=== PATIENT | female | born 1995 | race Hispanic/Latino ===

== ENCOUNTER 2018-08-03 13:32 | Day surgery (SDC) | payer OTHER ==
[2018-08-03 14:01] VITALS: BMI 23.9
[2018-08-03 14:09] VITALS: BP 118/56; TEMP 98.1
[2018-08-03] MEDS ORDERED: Acetaminophen 500 MG TAB PO PRN (14:37)
[2018-08-03] MEDS ORDERED: Iron Sucrose Complex 500 MG in Sodium Chloride 0.9% 250 ML 250 ML IVPB SCH (14:37)
[2018-08-03] MEDS ORDERED: Sodium Chloride 0.9% 1,000 ML IV SCH (14:45)
--- NOTE | 2018-08-03 20:39 | PDOC.LDHP ---
Labor and Delivery H&P HPI: 23 y/o at 37 and 1/7 weeks, presents with severe anemia of 2 weeks prior to . Clinic Hb/Hct was 7.9 and 24. We will administer iron by IV route per protocol today, and plan to repeat in 48 hours. Current gestational age (weeks): 37 Due date: 08/23/18 Grav: 3 Para: 1 Current complications: other (Severe Anemia) Current medications: pre-marya vitamins, iron Previous surgical history: low tranverse CS Allergies/Adverse Reactions: Allergies Allergy/AdvReac Type Severity Reaction Status Date / Time No Known Allergies Allergy Unverified 08/03/18 14:09 Social history: none - Physical Exam Vital signs reviewed and normal: yes General: NAD, resting Heart: RRR Lungs: nonlabored breathing Abdomen: NTTP Extremeties: no edema FHT: category 1 - Assessment Observastion on L&D with IV Iron infusion per protocol.
== END 2018-08-03 20:35 | disposition home or self-care (01) ==
LOC: L&D/OP 13:32
PROVIDERS: ATTEND Obstetrics & Gynecology
DX: O99.013 Anemia complicating pregnancy, third trimester (principal); D64.9 Anemia, unspecified; Z3A.37 37 weeks gestation of pregnancy; Z79.899 Other long term (current) drug therapy
CPT/HCPCS: 96361; 96365; 96366; 99281; J1756; J7050

== ENCOUNTER 2018-08-05 08:02 | Day surgery (SDC) | payer OTHER ==
[2018-08-05 08:24] VITALS: BMI 23.9
[2018-08-05] MEDS ORDERED: Iron Sucrose Complex 500 MG in Sodium Chloride 0.9% 250 ML 250 ML IVPB SCH (08:30)
[2018-08-05] MEDS ORDERED: Acetaminophen 500 MG TAB PO SCH (08:30)
--- NOTE | 2018-08-05 13:23 | PDOC.LDHP ---
Labor and Delivery H&P HPI: 23 y/o at 37 and 3/7 weeks, presents for second round of IV Iron - with severe anemia of 2 weeks prior to . Clinic Hb/Hct was 7.9 and 24. We will administer iron by IV route per protocol today, planned in 2 weeks. Current gestational age (weeks): 37 Grav: 3 Para: 1 Current complications: other (Severe Anemia, Chronic UTI) Current medications: pre- vitamins, iron Previous surgical history: low tranverse CS Allergies/Adverse Reactions: Allergies Allergy/AdvReac Type Severity Reaction Status Date / Time No Known Allergies Allergy Verified 08/05/18 08:23 Social history: none - Physical Exam Vital signs reviewed and normal: yes General: NAD, resting Heart: RRR Lungs: CTAB Abdomen: NTTP Extremeties: no edema FHT: category 1 - Vaginal Exam Effacement: 0% - Plan Plan: other -: Same Day Observation, with IV Iron Infusion. F/U in clinic in 4 days. NST today is reactive and reassuring.
== END 2018-08-05 13:12 | disposition home health service (06) ==
LOC: L&D/OP 08:02
PROVIDERS: ATTEND Obstetrics & Gynecology
DX: O99.013 Anemia complicating pregnancy, third trimester (principal); D64.9 Anemia, unspecified; N39.0 Urinary tract infection, site not specified; Z3A.37 37 weeks gestation of pregnancy; Z79.899 Other long term (current) drug therapy
CPT/HCPCS: 96365; 96366; 99282; J1756; J7050

== ENCOUNTER 2018-08-17 09:28 | Inpatient (IN) | payer OTHER ==
[2018-08-17 10:24] VITALS: BMI 24.3
[2018-08-17] MEDS ORDERED: Promethazine HCl 25 MG/ML VIAL IM PRN ×3 (10:26→18:08)
[2018-08-17] MEDS ORDERED: Ondansetron PF 4 MG/2 ML Vial IVP PRN ×3 (10:26→18:08)
[2018-08-17] MEDS ORDERED: Bicitra 30 ML UDCUP PO SCH (10:30)
[2018-08-17] MEDS ORDERED: CEFAZOLIN 2 GM in Premix Bag 1 BAG IVPB SCH (10:30)
[2018-08-17] MEDS ORDERED: Lactated Ringer's 1,000 ML IV SCH (10:30)
--- NOTE | 2018-08-17 10:33 | PDOC.LDHP ---
Labor and Delivery H&P HPI: 23 y/o at 39 weeks for repeat . Current gestational age (weeks): 39 Grav: 3 Para: 1 Current complications: other (Anemia, Chronic UTI) Abnormal US findings: No Current medications: pre- vitamins Previous surgical history: low tranverse CS Allergies/Adverse Reactions: Allergies Allergy/AdvReac Type Severity Reaction Status Date / Time No Known Allergies Allergy Verified 08/05/18 08:23 Social history: none - Physical Exam Vital signs reviewed and normal: yes General: NAD, resting Heart: RRR Lungs: CTAB Abdomen: NTTP Extremeties: no edema FHT: category 1 - Assessment L&D Assessment: scheduled repeat section - Plan Plan: admit to L&D, to OR for section
[2018-08-17 10:56] LABS: Hemoglobin 10.1 g/dL (12.0-16.0); Mean Corpuscular HGB CONC 33.4 g/dL (32.0-36.0); Mean Corpuscular Hemoglobin 26.4 pg (27.0-31.0); Mean Corpuscular Volume 78.9 fL (78.0-98.0); Mean Platelet Volume 11.6 fL (7.4-10.4); Platelet Count 194 thou/uL (130-400); RBC Distribution Width 27.4 % (11.5-14.5); Red Blood Cell (RBC) Count 3.84 mill/uL (4.20-5.40); White Blood Cell (WBC) Count 7.1 thou/uL (4.8-10.8)
[2018-08-17 11:35] LABS: Syphilis Antibody Nonreactive (Nonreactive)
[2018-08-17 11:36] LABS: HBSAg Index 0.32 S/CO (0-0.99); Hep B Surf Ag Non-Reactive S/CO (NonReactive)
[2018-08-17] MEDS: Lactated Ringer's 1,000 ML IV SCH ×2 (11:59→19:26)
[2018-08-17] MEDS ORDERED: Oxytocin 10 UNITS/ML VIAL ONE ×2 (13:40→13:48)
[2018-08-17] MEDS ORDERED: Carboprost 250 MCG/ML AMP ONE (13:44)
[2018-08-17] MEDS ORDERED: Misoprostol 200 MCG TAB ONE (13:44)
[2018-08-17] MEDS ORDERED: Methylergonovine 0.2 MG TAB ONE (13:45)
[2018-08-17] MEDS ORDERED: Methylergonovine 0.2 MG/ML VIAL ONE (13:45)
[2018-08-17] MEDS ORDERED: MORPHINE 5 MG/10 ML PF VIAL ONE (13:49)
[2018-08-17] MEDS ORDERED: Naloxone HCl 0.4 mg/ml Vial IVP PRN ×2 (15:12)
[2018-08-17] MEDS ORDERED: Ondansetron HCl/PF 4 MG/2 ML Vial IVP PRN (15:12)
[2018-08-17] MEDS ORDERED: HYDROmorphone 2 MG/ML VIAL SLOW IVP PRN (15:12)
[2018-08-17] MEDS ORDERED: diphenhydrAMINE 50 MG/ML VIAL IVP PRN (15:12)
[2018-08-17] MEDS ORDERED: L&D-Morphine 4 MG/ML VIAL SLOW IVP PRN (15:12)
[2018-08-17] MEDS ORDERED: Promethazine HCl 25 MG SUPP PR PRN (15:12)
[2018-08-17] MEDS ORDERED: Meperidine HCl/PF 25 MG/ML VIAL SLOW IVP PRN (15:12)
[2018-08-17] MEDS ORDERED: Naloxone HCl 0.4 mg/ml Vial IV PRN (15:12)
[2018-08-17] MEDS ORDERED: Ketorolac Tromethamine 30 MG/ML VIAL IVP PRN (15:12)
[2018-08-17] MEDS ORDERED: Ketorolac Tromethamine 30 MG/ML VIAL IVP SCH (15:15)
[2018-08-17] MEDS ORDERED: Communication Order-Pharmacy FS SCH (15:15)
[2018-08-17] MEDS ORDERED: NS / Oxytocin 40 units/1000ml 1,000 ML IV SCH (18:08)
[2018-08-17] MEDS ORDERED: HYDROcodone/Acetaminophen 5/325 mg Tablet PO PRN (18:08)
[2018-08-17] MEDS ORDERED: Bisacodyl 10 MG SUPP PR PRN (18:08)
[2018-08-17] MEDS ORDERED: Simethicone Chewable 80 MG TAB PO PRN (18:08)
[2018-08-17] MEDS ORDERED: Lanolin Ointment 7 GM TUBE TOP PRN (18:08)
[2018-08-17] MEDS ORDERED: Misoprostol 200 MCG TAB PR PRN (18:08)
[2018-08-17] MEDS ORDERED: Zolpidem Tartrate 5 MG TAB PO PRN (18:08)
[2018-08-17] MEDS ORDERED: diphenhydrAMINE 25 MG CAP PO PRN (18:08)
[2018-08-18 06:38] LABS: Hemoglobin 6.9 g/dL (12.0-16.0); Mean Corpuscular HGB CONC 31.3 g/dL (32.0-36.0); Mean Corpuscular Hemoglobin 25.9 pg (27.0-31.0); Mean Corpuscular Volume 82.7 fL (78.0-98.0); Mean Platelet Volume 11.2 fL (7.4-10.4); Platelet Count 138 thou/uL (130-400); RBC Distribution Width 27.7 % (11.5-14.5); Red Blood Cell (RBC) Count 2.65 mill/uL (4.20-5.40); White Blood Cell (WBC) Count 5.5 thou/uL (4.8-10.8)
[2018-08-18] MEDS: Ibuprofen 800 MG TAB PO SCH ×4 (07:45→21:26)
[2018-08-18] MEDS: Docusate Calcium (SURFAK) 240 MG CAP PO SCH ×3 (07:45→21:26)
[2018-08-18] MEDS: Prenatal Vitamin 1 TAB PO SCH (08:08)
[2018-08-18] MEDS: Ferrous Sulfate 325 MG TAB PO SCH ×2 (08:08→21:26)
[2018-08-18] MEDS ORDERED: Varicella virus, LIVE 0.5 ML VIAL SC ONE (09:00)
[2018-08-18] MEDS ORDERED: Measles/Mumps/Rubella 10 MCG/0.5 ML VIAL SC ONE (09:00)
[2018-08-18] MEDS ORDERED: Adacel (T-DAP) 0.5 ML SYRINGE IM ONE (09:00)
[2018-08-18] MEDS: HYDROcodone/Acetaminophen 5/325 mg Tablet PO PRN ×2 (10:12→14:57)
--- NOTE | 2018-08-18 16:03 | PDOC.PP ---
Post Progress Note Post Day #: 1 PO intake tolerated: yes Flatus: yes Ambulation: yes Vital Signs (12 hours) Temp Pulse Resp BP Pulse Ox 08/18/18 12:21 98.3 F 88 18 102/64 08/18/18 07:51 98.2 F 79 18 104/61 99 08/18/18 05:10 98.4 F 66 18 99/50 L Weight Weight 137 lb - Physical Examination General: NAD Cardiovascular: no m/r/g, RRR Respiratory: clear to auscultation bilaterally, non-labored breathing Abdominal: + bowel sounds, lochia, no distention, appropriately TTP Extremities: negative homans (B) Skin: CS incision dry & intact, no rash Neurological: no gross focal deficits Psychiatric: A&Ox3, normal affect (Post op Anemia is noted today. Will recheck CBC in am as some of this is likely dilutional. Possible DC home tomorrow.) Result Diagrams: 08/18/18 06:14 Additional Labs: Post Labs Blood Type A POSITIVE 08/17/18 11:00 Hep Bs Antigen Non-Reactive S/CO (NonReactive) 08/17/18 10:36
--- NOTE | 2018-08-18 21:51 | OP ---
DATE OF PROCEDURE: 08/17/2018 TIME: 1443 hours central daylight savings time. PREOPERATIVE DIAGNOSIS: Intrauterine at 39 weeks and 1 day with history of previous section for cephalopelvic disproportion, who desires repeat section. POSTOPERATIVE DIAGNOSIS: Intrauterine at 39 weeks and 1 day with history of previous section for cephalopelvic disproportion, who desires repeat section. PROCEDURE PERFORMED: Repeat low transverse section. FINDINGS: Viable male weighing 3611 g or 7 pounds 15 ounces. Apgars of 8 and 9. QUANTITATIVE BLOOD LOSS: 483 mL. COMPLICATIONS: None. DETAILS OF THE PROCEDURE: The patient was consented and taken back to the operating room where spinal anesthesia was found to be adequate. She was then prepped and draped in the normal sterile fashion. A timeout was performed by the entire operative team. The incision was then marked with a marking pen tested using sharp pickups. An incision was then made with a scalpel. The incision was carried through the adipose tissue down to the underlying rectus fascia using both sharp dissection as well as cautery. Once the fascia was identified, it was incised in the midline and then the fascial incision was carried through in both lateral directions using sharp as well as cautery dissection techniques. Next, the superior aspect of the rectus fascia was grasped with 2 Tyron clamps, which was tented up and the rectus muscles were dissected off using blunt dissection as well as cautery dissection. Similarly, the inferior aspect of the fascial incision was grasped with 2 Tyron clamps, tented up and the rectus muscles were dissected off bluntly as well as sharply. Next, the rectus muscles were in the midline and the peritoneum identified. The peritoneum was then carefully grasped with 2 hemostats and entered sharply. The peritoneal incision was extended superiorly and inferiorly and bladder blade was placed in the lower abdomen. At this point, the uterus was identified and the bladder flap was then developed using pickups with teeth as well as Metzenbaum scissors in both lateral directions. The bladder flap was then dissected downwards using the track grinder operator's finger as well as Metzenbaum scissors. The bladder blade was replaced. The lower uterine segment was then identified and entered sharply using a clean scalpel. The uterine incision was then dissected downwards until thin layer of muscle remained and this was entered bluntly using a hemostat to avoid any injury to the baby. The uterine incision was then stretched using two fingers in both lateral directions. An amniotomy was performed artificially using a hemostat and the baby was delivered using fundal pressure in a gentle fashion. Once out, the baby's mouth and nose were bulb suctioned, cord clamped and cut, and the baby was handed to waiting attendants. Next, the uterus was exteriorized, cleared of all clots and debris and the uterine incision was repaired with #1 Monocryl in a running locking fashion. A 2nd suture of the same type was used to obtain complete hemostasis at the uterine incision. The bladder flap was reapproximated using 3-0 Monocryl. Next, patient's left and right adnexa were inspected and appeared to be within normal limits. The posterior cul-de-sac was blotted dry and hemostasis assured. One more look at the uterine incision demonstrated hemostasis. Next, the uterus was replaced back within the abdomen. The peritoneum was reapproximated using 2-0 Monocryl without difficulty. The rectus muscles were then allowed to come back together and 0 chromic was used to aid in reapproximation of the muscle as necessary. The rectus fascia was then reapproximated in a running fashion using 0 Vicryl suture. The adipose tissue was then examined and appeared to be well approximated without any obvious separations. Finally, the skin was reapproximated with 3-0 Monocryl on a Memo needle without difficulty and Dermabond adhesive was applied to the skin. Once the glue was dry, the drapes were removed and the patient was transferred to an ambulatory bed where she was taken to recovery awake and in stable condition. Sponge, lap, and needle counts were correct x3. Addendum: After closure of the uterus, it was found to still be somewhat atonic and the patient received a single dose of Methergine, which after several minutes, significantly improved the tone of the uterus to a normal level. A slight extension of the uterine incision to the left side was repaired with an additional figure-of-8 suture. No further difficulties were encountered. Job ID: [id number]
[2018-08-19] MEDS: Ibuprofen 800 MG TAB PO SCH (05:21)
[2018-08-19 06:43] LABS: #Lymphocytes 1.4 thou/uL (1.20-3.40); #Monocytes 0.6 thou/uL (0.11-0.59); #Neutrophils 5.3 thou/uL (1.40-6.50); %Basophils 0.4 % (0.0-1.0); %Eosinophils 0.5 % (0.0-10.0); %Lymphocytes 19.6 % (21.0-51.0); %Monocytes 8.1 % (0.0-10.0); %Neutrophils 71.4 % (42.0-75.0); Anisocytosis SLIGHT = 6-15 cells (100X) (0-5/hpf); Hemoglobin 6.7 g/dL (12.0-16.0); Hypochromia SLIGHT = 6-15 cells (100X) (0-5/hpf); MDiff Complete? YES; Mean Corpuscular HGB CONC 31.3 g/dL (32.0-36.0); Mean Corpuscular Hemoglobin 26.2 pg (27.0-31.0); Mean Corpuscular Volume 83.8 fL (78.0-98.0); Mean Platelet Volume 11.1 fL (7.4-10.4); Platelet Count 167 thou/uL (130-400); Platelet Morphology Comment Appears Adequate; RBC Distribution Width 27.6 % (11.5-14.5); Red Blood Cell (RBC) Count 2.55 mill/uL (4.20-5.40); White Blood Cell (WBC) Count 7.4 thou/uL (4.8-10.8)
[2018-08-19] MEDS: Ferrous Sulfate 325 MG TAB PO SCH (10:03)
[2018-08-19] MEDS: Docusate Calcium (SURFAK) 240 MG CAP PO SCH (10:03)
[2018-08-19] MEDS: Prenatal Vitamin 1 TAB PO SCH (10:03)
--- NOTE | 2018-08-19 11:20 | PDOC.PP ---
Post Progress Note Post Day #: 2 PO intake tolerated: yes Flatus: yes Ambulation: yes Vital Signs (12 hours) Temp Pulse Resp BP 08/19/18 05:30 97.9 F 71 16 109/56 L 08/18/18 23:35 98.8 F 63 16 99/52 L Weight Weight 137 lb - Physical Examination General: NAD Cardiovascular: no m/r/g, RRR Respiratory: clear to auscultation bilaterally, non-labored breathing Abdominal: + bowel sounds, no distention Extremities: negative homans (B) Skin: CS incision dry & intact, no rash Neurological: no gross focal deficits Psychiatric: A&Ox3, normal affect Result Diagrams: 08/19/18 05:02 Additional Labs: Post Labs Blood Type A POSITIVE 08/17/18 11:00 Hep Bs Antigen Non-Reactive S/CO (NonReactive) 08/17/18 10:36 - Assessment/Plan Patient has normal orthostatic vital signs. IV Discontinued. Vital signs stable since surgery. No headaches or SOB. Blood Transfusion of 1-2 pRBCs offered and discussed with patient and this morning. Possible consequences of not receiving blood also reviewed in detail. Patient declines blood transfusion. She desires to only continue iron at home. Bleeding precautions and signs/ symptoms of worsening anemia discussed and reviewed prior to discharge.
[2018-08-19 11:24] VITALS: TEMP 98.7
[2018-08-19 11:34] VITALS: BP 108/66
== END 2018-08-19 12:45 | disposition home or self-care (01) | DRG 788 ==
LOC: L&D 09:28 → 3SW 17:56
PROVIDERS: ADMIT Obstetrics & Gynecology; ATTEND Obstetrics & Gynecology
PROC: 10D00Z1 Extraction of Products of Conception, Low, Open Approach (ICD-10-PCS; principal; 2018-08-17)
DX: O34.211 Maternal care for low transverse scar from previous cesarean delivery (principal); O99.02 Anemia complicating childbirth; D64.9 Anemia, unspecified; O33.9 Maternal care for disproportion, unspecified; Z3A.39 39 weeks gestation of pregnancy; Z37.0 Single live birth
CPT/HCPCS: 36415; 51702; 85025; 85027; 86780; 86850; 86900; 86901; 87340; J0690; J1885; J2210; J2270; J2590; J3490; Q0163

== ENCOUNTER 2019-01-18 18:45 | Observation (INO) | payer OTHER ==
[~2019-01-18 18:45] MED LIST: Iopamidol-370 76% 500 ML 1 ML ONE
[2019-01-18 19:23] LABS: #Eosinphils 0.1 thou/uL (0.0-0.7); #Lymphocytes 2.2 thou/uL (1.20-3.40); #Monocytes 0.6 thou/uL (0.11-0.59); %Basophils 0.4 % (0.0-1.0); %Lymphocytes 31.5 % (21.0-51.0); %Monocytes 8.6 % (0.0-10.0); %Neutrophils 58.4 % (42.0-75.0); Hemoglobin 12.9 g/dL (12.0-16.0); Mean Corpuscular HGB CONC 33.8 g/dL (32.0-36.0); Mean Corpuscular Hemoglobin 29.5 pg (27.0-31.0); Mean Corpuscular Volume 87.3 fL (78.0-98.0); Mean Platelet Volume 9.5 fL (7.4-10.4); Platelet Count 239 thou/uL (130-400); RBC Distribution Width 12.8 % (11.5-14.5); Red Blood Cell (RBC) Count 4.38 mill/uL (4.20-5.40); White Blood Cell (WBC) Count 6.9 thou/uL (4.8-10.8)
[2019-01-18 19:35] LABS: BHCG - Serum Negative (NEGATIVE); Pregs Control Background? CLEAR/WHITE (CLR/WHITE); Pregs Control Bar Appear? YES (CONTROL BAR)
[2019-01-18 19:46] LABS: ALT (SGPT) 10 U/L (8-55); AST (SGOT) 13 U/L (5-34); Albumin 4.7 g/dL (3.5-5.0); Alkaline Phosphatase 92 U/L (40-110); Anion Gap 11 mmol/L (10-20); BUN (Urea Nitrogen) 14 mg/dL (7.0-18.7); Bilirubin, Total 0.3 mg/dL (0.2-1.2); Calc. Creatinine Clearance 0 mL/min (70-130); Calcium 9.6 mg/dL (7.8-10.44); Carbon Dioxide 28 mmol/L (22-29); Chloride 103 mmol/L (98-107); Estimated GFR-MDRD Greater than 90; Glucose 93 mg/dL (70-105); Lipase 23 U/L (8-78); Potassium 3.8 mmol/L (3.5-5.1); Protein, Total 7.7 g/dL (6.0-8.3); Sodium 138 mmol/L (136-145)
[2019-01-18 20:28] LABS: Bilirubin Negative (Negative); Blood, Urine Negative (Negative); Clarity Clear (Clear); Glucose, Urine (Dipstick) Normal (Negative); Leukocyte Negative Leu/uL (Negative); Nitrite Negative (Negative); Protein, Urine (Dipstick) Negative (Neg-Trace); Urobilinogen Normal mg/dL (Less than 2)
--- NOTE | 2019-01-18 21:08 | CT ---
ABDOMEN CT WITH CONTRAST PELVIC CT WITH CONTRAST 01/18/19 HISTORY: Right lower quadrant pain. COMPARISON: None. FINDINGS: ABDOMEN CT: The lung bases are clear. Normal heart size. Unremarkable aorta. Portal vein is patent. Appropriate enhancement of the solid organs. No gastrohepatic, retrocrural or periportal lymphadenopathy. Contracted gallbladder, likely due to nonfasting state. Enhancement of the kidneys. Bilaterally, no o bstructive uropathy. Limited evaluation of the alimentary canal by lack of oral contrast. There appears to be medializatio n of the cecum and ascending colon. Lateral to the right hemicolon, there appear to be segments of wh at is likely colon and possibly small bowel. There is stranding of the abdominal mesentery along with mildly enlarged lymph nodes. [facility] lymph node measures 0.8 x 0.6 cm. The possibility of an internal hernia cannot be excluded. The ileocecal junction is unremarkable. Normal caliber appendix i s identified. Currently, there does not appear to be any evidence of high grade bowel obstruction. Anterior abdominal wall: Dehiscence without evidence of bowel herniation. A small amount of herniated fat at the level of the umbilicus is noted. There is diverticulosis in the sigmoid colon. No diverticulitis. CT PELVIS: Small amount of free fluid in the pelvis is nonspecific. No pelvic mass, lymphadenopathy, free air or free fluid. There is mild mucosa prominence of the urinary bladder, nonspecific. There are no lytic or blastic lesions of the osseous structures. There appears to be mucosa thickening of the rectum. Correlate for proctitis. IMPRESSION: 1. Normal caliber appendix. No evidence of appendicitis. 2. Stranding of the abdominal mesentery involving the right lower quadrant. The possibility of i nternal hernia cannot be excluded. General surgical consultation is recommended. 3. Enlarged right lower quadrant lymph nodes which may be reaction. 4. There does appear to be rectal mucosa thickening. Correlate for proctitis. Results of the study discussed with Hattie Oliva, 01/18/19 at 8:51 p.m. Code CR POS: PPP
[2019-01-18] MEDS ORDERED: Ondansetron PF 4 MG/2 ML Vial IVP PRN (21:58)
[2019-01-18] MEDS ORDERED: Ondansetron ODT 4 MG TAB SL PRN (21:58)
[2019-01-18] MEDS: Sodium Chloride 0.9% 1,000 ML IV SCH (23:35)
[2019-01-19 00:03] VITALS: BMI 22.1
[2019-01-19] MEDS: Sodium Chloride 0.9% 1,000 ML IV SCH ×2 (08:23→22:39)
[2019-01-19] MEDS ORDERED: Glycopyrrolate 0.2 MG/ML 5 ML SYRINGE ONE (10:03)
[2019-01-19] MEDS ORDERED: ePHEDrine/0.9% NaCl/PF SYRINGE 50 mg/10 ml ONE (10:03)
[2019-01-19] MEDS ORDERED: Dexamethasone 20 MG/5 ML VIAL ONE (10:03)
[2019-01-19] MEDS ORDERED: Rocuronium Bromide 10 MG/ML (10ML VIAL) ONE (10:03)
[2019-01-19] MEDS ORDERED: PROPOFOL 200 MG/20 ML VIAL ONE (10:03)
[2019-01-19] MEDS ORDERED: Lidocaine 1% PF 5 ML VIAL ONE (10:03)
[2019-01-19] MEDS ORDERED: Ondansetron PF 4 MG/2 ML Vial ONE (10:03)
[2019-01-19] MEDS ORDERED: PHENYLEPHRINE-NS 100 MCG/ML 10 ML SYRINGE ONE (10:03)
[2019-01-19] MEDS ORDERED: Acetaminophen 1,000 MG in Premix Bag 1 BAG IVPB PRN (13:36)
[2019-01-19] MEDS ORDERED: Meropenem 2 GM in Sodium Chloride 0.9% 100 ML IVPB SCH (13:45)
[2019-01-19] MEDS ORDERED: Ketorolac Tromethamine 30 MG/ML VIAL IVP SCH (13:45)
[2019-01-19] MEDS ORDERED: Acetaminophen 1,000 MG in Premix Bag 1 BAG IVPB SCH (13:45)
--- NOTE | 2019-01-19 13:48 | HP ---
HISTORY OF PRESENT ILLNESS: Mirian Roberto is a 23-year-old female, August, without any prior operations, presents with severe lower abdominal pain of 24 to 36 hours' duration. She is seen in the emergency room, normal white count. CAT scan obtained revealing suggestion of internal hernia in right abdomen with medialization of her colon without appendicitis. She is hospitalized overnight, remained afebrile. Her pain has improved somewhat, although she still experiences when she ambulates. ALLERGIES: NONE. SOCIAL HISTORY: Tobacco, none. Alcohol, none. MEDICATIONS: None. PAST SURGICAL HISTORY: C-sections. REVIEW OF SYSTEMS: Ten-point noncontributory. PHYSICAL EXAMINATION: VITAL SIGNS: Height 5 foot 3, weight 125 pounds, 22 BMI. Temperature 98.6, pulse 86, and blood pressure 114/70. HEAD, EARS, EYES, NOSE AND THROAT: Unremarkable. LUNGS: Clear to auscultation. CARDIAC: Regular rate and rhythm without murmur or gallop. ABDOMEN: Soft. Mild tenderness in lower abdomen without peritoneal signs. EXTREMITIES: Unremarkable. ASSESSMENT AND PLAN: CAT scan radiological findings suggestive of internal hernia in a lady who has not had prior surgeries, except for . Due to her ongoing discomfort and the inflammatory mesenteric changes seen radiologically, we will would recommend diagnostic laparoscopy and procedure as indicated. Risks of infection, bleeding, visceral injury, intestinal resection, open operation, transfusion discussed. She consents. Job ID: [id number]
[2019-01-19] MEDS ORDERED: Midazolam HCl 2 mg/2 ml Vial ONE (19:46)
[2019-01-19] MEDS ORDERED: Bupivacaine HCl 0.5%/Epinephrine 1:200,000/PF 30 ml Vial ONE ×2 (19:53→21:29)
[2019-01-19] MEDS ORDERED: HYDROmorphone 0.5 MG/0.5 ML SYRINGE ONE (20:01)
[2019-01-19] MEDS ORDERED: Fentanyl 100 MCG/2 ML VIAL ONE (20:01)
[2019-01-19] MEDS ORDERED: traMADol HCl 50 MG TAB PO PRN ×2 (21:32)
[2019-01-19] MEDS ORDERED: Acetaminophen 500 MG TAB PO PRN (21:32)
[2019-01-19] MEDS ORDERED: Ondansetron ODT 8 MG TAB SL PRN (21:32)
[2019-01-19] MEDS ORDERED: Ondansetron ODT 8 MG TAB PO PRN (21:32)
[2019-01-19] MEDS ORDERED: Ondansetron ORAL SOLN. 4 MG/5 ML UDCUP PO PRN ×2 (21:32)
[2019-01-19] MEDS ORDERED: Promethazine HCl 25 MG/ML VIAL IM PRN (21:43)
[2019-01-19] MEDS ORDERED: PACU-Morphine 4MG/ML VIAL SLOW IVP PRN (21:43)
[2019-01-19] MEDS ORDERED: Promethazine HCl 25 MG/ML VIAL SLOW IVP PRN (21:43)
[2019-01-19] MEDS ORDERED: Ondansetron HCl/PF 4 MG/2 ML Vial IVP PRN (21:43)
[2019-01-19] MEDS ORDERED: HYDROmorphone 2 MG/ML VIAL SLOW IVP PRN (21:43)
[2019-01-20] MEDS: Ketorolac Tromethamine 30 MG/ML VIAL IVP PRN ×2 (01:08→07:58)
--- NOTE | 2019-01-20 01:29 | OP ---
DATE OF PROCEDURE: 01/19/2019 PREOPERATIVE DIAGNOSES: Abdominal pain. CAT scan suggests possible internal hernia. Umbilical hernia. POSTOPERATIVE DIAGNOSES: Meckel's diverticulum. No internal hernia. Umbilical hernia. PROCEDURE PERFORMED: Diagnostic laparoscopy, laparoscopic Meckel's diverticulectomy, laparoscopic appendectomy, repair of umbilical hernia without mesh. ANESTHESIA: General, local 0.5% Marcaine with epinephrine 30 mL. DESCRIPTION OF PROCEDURE: The patient was taken to the operating room, where under general anesthesia, Cedillo catheter placed at the beginning and removed at the end. Abdomen was prepared with ChloraPrep and draped in routine fashion. Left lateral subcostal incision was made. Pneumoperitoneum to 15 mmHg was obtained with a Veress needle, replaced with a 5 port. Five ports placed in the infraumbilical, through the umbilical hernia defect and left lateral mid abdomen, left lower quadrant and later another 12 port placed in the left lateral abdomen. The right colon was visualized, and was normal. Small bowel was visualized beginning at the cecum, terminal ileum proximally for about 6 feet and noted to be normal. There was a Meckel's diverticulum present within 1 foot of the ileocecal valve. There was no appreciable mass, however, this was resected following a transverse stapler resecting the Meckel's diverticulum and noting hemostasis gained with clips. Meckel's diverticulum was removed, submitted to Pathology. Since we had a stapler, appendectomy was performed since she had right lower quadrant pain. Appendix was very long, mesoappendix was taken down with a LigaSure. Stump of the appendix divided with Endo-NIRMAL blue load stapler dividing the cecal stump. Good hemostasis noted in the cecal stump. Appendix removed and submitted to Pathology. Irrigant and pneumoperitoneum evacuated. No other abnormalities were noted. Infraumbilical incision was made and umbilical hernia repaired resecting the hernia sac and closing the fascia with [id number] with interrupted sutures 0 PDS pop-off. Subcutaneous tissue was approximated with 3-0 Monocryl, skin with subdermal 4-0 Monocryl, and [place] glue applied. The patient tolerated the procedure well. Job ID: [id number]
[2019-01-20 04:11] LABS: #Lymphocytes 0.8 thou/uL (1.20-3.40); #Monocytes 0.3 thou/uL (0.11-0.59); #Neutrophils 7.9 thou/uL (1.40-6.50); %Basophils 0.1 % (0.0-1.0); %Eosinophils 0.1 % (0.0-10.0); %Lymphocytes 9.3 % (21.0-51.0); %Monocytes 3.4 % (0.0-10.0); %Neutrophils 87.2 % (42.0-75.0); Hemoglobin 11.3 g/dL (12.0-16.0); Mean Corpuscular HGB CONC 34.5 g/dL (32.0-36.0); Mean Corpuscular Volume 87.1 fL (78.0-98.0); Mean Platelet Volume 9.8 fL (7.4-10.4); Platelet Count 192 thou/uL (130-400); RBC Distribution Width 12.8 % (11.5-14.5); Red Blood Cell (RBC) Count 3.76 mill/uL (4.20-5.40); White Blood Cell (WBC) Count 9.1 thou/uL (4.8-10.8)
[2019-01-20 04:30] LABS: Anion Gap 8 mmol/L (10-20); BUN (Urea Nitrogen) 10 mg/dL (7.0-18.7); Calc. Creatinine Clearance 100 mL/min (70-130); Calcium 8.6 mg/dL (7.8-10.44); Carbon Dioxide 24 mmol/L (22-29); Chloride 109 mmol/L (98-107); Estimated GFR-MDRD Greater than 90; Glucose 203 mg/dL (70-105); Potassium 3.8 mmol/L (3.5-5.1); Sodium 137 mmol/L (136-145)
[2019-01-20] MEDS: Sodium Chloride 0.9% 1,000 ML IV SCH ×3 (09:02→13:54)
[2019-01-20 16:06] VITALS: BP 104/66; TEMP 99.9
--- NOTE | 2019-01-20 16:40 | DIS ---
DATE OF ADMISSION: 01/18/2019 DATE OF DISCHARGE: 01/20/2019 DISCHARGE DIAGNOSES: 1. Abdominal pain of uncertain etiology. 2. Normal appendix. 3. Meckel diverticulum. 4. Umbilical hernia. PROCEDURES DURING THIS HOSPITALIZATION: CT scan of the abdomen and pelvis suggested an internal hernia without prior history of other surgery except C-sections, umbilical hernia, symptomatic. Meckel diverticulum. Exploratory laparoscopy, laparoscopic appendectomy, laparoscopic Meckel diverticulectomy, umbilical hernia repair without mesh. HISTORY: A 23-year-old female, who presented to the emergency room with abdominal pain in the right abdomen. She has had past C-sections. CAT scan suggested an internal hernia, right colon. The patient received antibiotics, underwent laparoscopy, revealed absence of an internal hernia, although she had a long appendix that appendectomy was performed. She then was appreciated to have a Meckel diverticulum, for which staple of Meckel diverticulectomy was removed and submitted to Pathology. The patient had an umbilical hernia repair, open without mesh. No other abnormalities were noted. Postoperatively, the patient did well, was tolerating diet and has been discharged home at this time with followup in my office in 2 to 3 weeks. Tylenol, Advil, and Ultram p.r.n. pain. Diet and activity as tolerated. Avoid lifting over 30 pounds for 4 weeks. Job ID: [id number]
[2019-01-24] MEDS ORDERED: Ibuprofen 600 MG TAB PO PRN (14:00)
== END 2019-01-20 15:05 | disposition home or self-care (01) ==
LOC: ERS 18:45 → SURG A 21:57 → INTOOBSV 21:57
PROVIDERS: ADMIT Specialist; ATTEND Specialist
PROC: 0WQF4ZZ Repair Abdominal Wall, Percutaneous Endoscopic Approach (ICD-10-PCS; principal; 2019-01-18)
PROC: 0DBE4ZZ Excision of Large Intestine, Percutaneous Endoscopic Approach (ICD-10-PCS; 2019-01-18)
DX: Q43.0 Meckel's diverticulum (displaced) (hypertrophic) (principal)
CPT/HCPCS: 36415; 74177; 80048; 80053; 81003; 83690; 84703; 85025; 88304; 96360; 96361; 96374; 96375; 96376; G0378; J0131; J0670; J1100; J1170; J1885; J2001; J2250; J2405; J2704; J3010; Q9967

== ENCOUNTER 2020-09-11 21:07 | Emergency (ER) | payer OTHER ==
[2020-09-11 22:42] LABS: #Lymphocytes 1.7 thou/uL (1.20-3.40); #Monocytes 1.1 thou/uL (0.11-0.59); %Basophils 0.2 % (0.0-1.0); %Eosinophils 0.1 % (0.0-10.0); %Lymphocytes 13.4 % (21.0-51.0); %Monocytes 8.5 % (0.0-10.0); %Neutrophils 77.7 % (42.0-75.0); Hemoglobin 13.2 g/dL (12.0-16.0); Mean Corpuscular HGB CONC 35.7 g/dL (32.0-36.0); Mean Corpuscular Hemoglobin 33.4 pg (27.0-31.0); Mean Corpuscular Volume 93.5 fL (78.0-98.0); Mean Platelet Volume 10.1 fL (7.4-10.4); Platelet Count 221 thou/uL (130-400); RBC Distribution Width 11.2 % (11.5-14.5); Red Blood Cell (RBC) Count 3.97 mill/uL (4.20-5.40); White Blood Cell (WBC) Count 12.8 thou/uL (4.8-10.8)
[2020-09-11 23:01] LABS: ALT (SGPT) 28 U/L (8-55); AST (SGOT) 23 U/L (5-34); Albumin 4.3 g/dL (3.5-5.0); Alkaline Phosphatase 86 U/L (40-110); Anion Gap 16 mmol/L (10-20); BUN (Urea Nitrogen) 11 mg/dL (7.0-18.7); Bilirubin, Total 0.4 mg/dL (0.2-1.2); Calc. Creatinine Clearance 0 mL/min (70-130); Calcium 9.2 mg/dL (7.8-10.44); Carbon Dioxide 19 mmol/L (22-29); Chloride 104 mmol/L (98-107); Globulin 3.6 g/dL (2.4-3.5); Glucose 107 mg/dL (70-105); Potassium 3.9 mmol/L (3.5-5.1); Protein, Total 7.9 g/dL (6.0-8.3); Sodium 135 mmol/L (136-145)
[2020-09-11] MEDS ORDERED: Acetaminophen 500 MG TAB ONE (23:11)
[2020-09-11] MEDS ORDERED: Ketorolac Tromethamine 30 MG/ML VIAL ONE (23:11)
[2020-09-11 23:17] LABS: BHCG - Serum Negative (NEGATIVE); Pregs Control Background? CLEAR/WHITE (CLR/WHITE); Pregs Control Bar Appear? YES (CONTROL BAR)
[2020-09-12 00:35] LABS: Bacteria/HPF 4+ HPF (None Seen); Bilirubin Negative (Negative); Blood, Urine 1+ (Negative); Clarity Clear (Clear); Glucose, Urine (Dipstick) Normal (Negative); Ketone, Urine 40 mg/dL (Negative); Leukocyte Negative Leu/uL (Negative); Nitrite 1+ (Negative); Protein, Urine (Dipstick) 10 mg/dL (Neg-Trace); Specific Gravity, Urine 1.019 (1.002-1.036); Squamous Epithelial 0-3 HPF (0-3); Urobilinogen Normal mg/dL (Less than 2)
[2020-09-12] MEDS ORDERED: cefTRIAXone\\ROCEPHIN 1 GM VIAL ONE (02:56)
[2020-09-12] MEDS ORDERED: Iopamidol-370 76% 500 ML 1 ML ONE (10:15)
== END 2020-09-12 03:31 | disposition home or self-care (01) ==
LOC: ERS 21:07
DX: N10 Acute pyelonephritis (principal)
CPT/HCPCS: 36415; 71045; 74177; 80053; 81003; 81015; 84703; 85025; 96374; 96375; J0696; J1885; Q9967

== ENCOUNTER 2020-10-22 | Outpatient (CLI) | payer OTHER | END 2020-10-22 08:08 | disposition home or self-care (01) ==